=== PATIENT | female | born 1990 | race Caucasian/White ===

== ENCOUNTER 2020-02-26 17:36 | Emergency (ER) | payer OTHER ==
--- NOTE | 2020-02-26 18:58 | ER Document Report ---
ED Respiratory Problem <KATALINA NOEL Kajal - Last Filed: 02/26/20 20:44> <AMINATA SHARMA - Last Filed: 02/27/20 03:56> - General Chief Complaint: Shortness Of Breath Stated Complaint: SHORTNESS OF BREATH,COUGH,CHILLS,BODY ACHES Time Seen by Provider: 02/26/20 18:58 Primary Care Provider: ELISA IBARRA MD [ACTIVE PROVISIONAL STAFF] - (as scheduled on 03/08/20) Notes: Patient is a G3, P2 29-year-old female presents to the emergency department with shortness of breath. Patient is 32 weeks and states that the fetus is growing faster than normal. She denies any past medical history. Patient's tested positive for COVID-19. Patient was tested 2 days ago and is waiting on her results. Patient reports a cough and rhinorrhea. States that she took Benadryl, which helped a little bit with her cough. (KATALINA NOEL) - Related Data Allergies/Adverse Reactions: amoxicillin Allergy (Verified 02/26/20 20:54) Sulfa (Sulfonamide Antibiotics) Allergy (Verified 02/26/20 20:54) Past Medical History - General Information source: Patient - Social History Smoking Status: Never Smoker Frequency of alcohol use: None Drug Abuse: None Family History: Reviewed & Not Pertinent <AMINATA SHARMA - Last Filed: 02/27/20 03:56> Review of Systems <KATALINA NOEL - Last Filed: 02/26/20 20:44> - Review of Systems Notes: REVIEW OF SYSTEMS: CONSTITUTIONAL : Denies recent illness. Denies recent unintentional weight loss. Denies fever, chills, or sweats. EENT: Denies eye, ear, throat, or mouth pain, discharge, or symptoms. See HPI. CARDIOVASCULAR: Denies chest pain. RESPIRATORY: See HPI. GASTROINTESTINAL: Denies nausea, vomiting, and diarrhea. Denies abdominal pain. Denies constipation. GENITOURINARY: Denies difficulty urinating, burning, blood in urine, urgency or frequency. FEMALE GENITOURINARY: See HPI. MUSCULOSKELETAL: Denies neck and back pain. Denies joint pain or swelling. SKIN: Denies rash, itchiness, or lesions HEMATOLOGIC : Denies easy bruising or bleeding. LYMPHATIC: Denies swollen, painful, enlarged glands. NEUROLOGICAL: Denies no numbness or tingling denies weakness. Denies headache. Denies altered mental status. Denies alteration in speech. PSYCHIATRIC: Denies stress, anxiety, alteration in sleep patterns, or depression. All other systems reviewed and negative. (KATALINA NOEL) Physical Exam <KATALINA NOEL - Last Filed: 02/26/20 20:44> - Vital signs Vitals: Temp Pulse Resp BP Pulse Ox 98.6 F 120 H 24 H 133/68 H 97 02/26/20 17:50 02/26/20 17:50 02/26/20 17:50 02/26/20 17:50 02/26/20 17:50 - Notes Notes: PHYSICAL EXAMINATION: GENERAL: Appears well, healthy, well-nourished, no acute distress. HEAD: Normocephalic, atraumatic. EYES: PERRL, conjunctiva normal, all extraocular movements intact, sclera nonicteric ENT: Moist mucous membranes. NECK: Supple, no noticeable swelling, redness, rash. Normal range of motion. LUNGS: Equal breath sounds bilaterally and clear to auscultation. No wheezes rales or rhonchi. CARDIOVASCULAR: S1-S2, tachycardic, regular rhythm. Radial pulses 2+, normal. ABDOMEN: Normoactive bowel sounds. Soft, nontender, no guarding, no rebound tenderness, and no masses palpated. Appears 32 weeks . EXTREMITIES: Normal strength and range of motion, no pitting or edema. No cyanosis. NEUROLOGICAL: Moves all extremities upon command. Strength 5/5 in all extremities. PSYCH: Normal mood, normal affect. SKIN: Warm, dry. No rash, lesions, ulcerations noted. Normal skin turgor. (KATALINA NOEL) Course - Laboratory Results Result Diagrams: 02/26/20 20:20 02/26/20 20:20 <KATALINA NOEL - Last Filed: 02/26/20 20:44> - Laboratory Results Result Diagrams: 02/26/20 20:20 02/26/20 20:20 Critical Laboratory Results Reviewed: Yes - positive for COVID 19 Attending or Supervising Physician who Reviewed Labs: TONO GARZA - consult electrode turner and finisher - Radiology Results Critical Radiology Results Reviewed: No Critical Results - EKG Interpretation by Me Rate: Tachycardia - Consults Dr. Ibarra Time consulted: 12:23 Consulted provider: will see as inpatient Dr. Rapp Time consulted: 12:24 Consulted provider: will see as inpatient <AMINATA SHARMA - Last Filed: 02/27/20 03:56> - Re-evaluation Re-evalutation: 02/26/20 20:42 Report given to Aminata Sharma NP. (KATALINA NOEL) 02/26/20 21:42 Patient with persistent shortness of breath, cough improved after receiving Robitussin. Still remains tachycardic. Staffed case with my attending Dr. Garza recommends Covid test, second liter of fluid, and reevaluate. 02/26/20 22:34 Patient remains tachycardic and short of breath. Covid test is pending. Charge nurse has spoken to labor and delivery and they will send a nurse down to monitor the baby for the abdominal cramping that the patient is having. 02/26/20 23:56 Patient has received 2 L of IV fluids remains tachycardic and short of breath. COVID-19 test is positive. Will call on-call OB for possible admission. 02/26/20 12:25 spoke with my charge nurse who will reach out to clerical warehouse worker to resolve issue of who will be primary for admission. 02/27/20 02:29 Dr. Ibarra in the emergency room seeing and evaluating patient. 02/27/20 03:07 Patient is resting comfortably vital signs have improved. Shortness of breath has improved. Patient was seen and evaluated by who is discharging p atient home with outpatient follow-up. (AMINATA SHARMA) - Vital Signs Vital signs: Temp Pulse Resp BP Pulse Ox 98.5 F 120 H 19 108/77 93 02/27/20 03:19 02/26/20 17:50 02/27/20 03:01 02/27/20 03:01 02/27/20 03:01 - Laboratory Results Laboratory Results Interpreted: 02/26/20 02/26/20 02/26/20 20:10 20:20 20:20 Hgb 11.4 L Hct 33.2 L Lymph % (Auto) 12.7 L Seg Neutrophils % 78.3 H Sodium 132.5 L BUN 4 L Calcium 8.3 L Alkaline Phosphatase 145 H Total Protein 6.0 L Albumin 3.2 L Urine Protein 30 H Urine Ketones 80 H Urine Urobilinogen 4.0 H Ur Leukocyte Esterase LARGE H SARS-CoV-2 (PCR) 02/26/20 21:50 Hgb Hct Lymph % (Auto) Seg Neutrophils % Sodium BUN Calcium Alkaline Phosphatase Total Protein Albumin Urine Protein Urine Ketones Urine Urobilinogen Ur Leukocyte Esterase SARS-CoV-2 (PCR) DETECTED H - EKG Interpretation by Me Additional EKG results interpreted by me: 02/26/20 20:42 Sinus tachycardia. Rate 122. MT 144; QRS 80; QT 316; QTc 451. No ST elevations or depressions noted. No evidence of right heart strain. Discussed this EKG with Dr. Garza, my attending. (KATALINA NOEL) - Consults Dr. Ibarra Reason for consultation: 02/27/20 02:26 Patient 32 and half weeks Covid positive, persistent shortness of breath and tachycardic discussed admission with Dr. Ibarra. Who is agreeable for consult but is not willing to admit medically. Recommends calling hospitalist for admission. (AMINATA SHARMA) Dr. Rapp Reason for consultation: 02/27/20 02:27 Discussed admission for COVID-19 positive, persistent shortness of breath and tachycardic after receiving 2 L of IV fluids. Is not willing to accept patient as primary mission. Will consult but requesting patient be admitted to OB primary and medicine will consult. (AMINATA SHARMA) Discharge <KATALINA NOEL - Last Filed: 02/26/20 20:44> <AMINATA SHARMA - Last Filed: 02/27/20 03:56> - Discharge Clinical Impression: Shortness of breath, COVID-19, Tachycardia Condition: Stable Disposition: HOME, SELF-CARE Instructions: Dyspnea, Nonspecific ([facility]), Sinus Tachycardia ([facility]) Additional Instructions: Continue vitamin and add vitamin D 1,500mg daily, Protonix 40mg dially and Tums PRN for GERD, Zofran PRN nausea, start Baby aspirin 81mg BID until she returns to office. If worsening symptoms she should return to the ED immediately. If she notes contractions Q 5 minutes or less for an hour or more, vaginal bleeding like a period or loss of fluid vaginally she should come to ED immediately. If not feeling baby move then she should get a drink or snack and if still not feeling baby move then come to OB triage. Prescriptions: Ondansetron [Zofran Odt 4 mg Tablet] 4 mg PO Q4HP PRN 15 Days #30 tab.rapdis PRN Reason: Pantoprazole Sodium [Protonix] 40 mg PO DAILY 30 Days #30 tablet.dr Referrals: ELISA IBARRA MD [ACTIVE PROVISIONAL STAFF] - (as scheduled on 03/08/20)
[2020-02-26] MEDS ORDERED: NORMAL SALINE 1000 ML 1,000 ML IV ONE (19:07)
[2020-02-26] MEDS ORDERED: GUAIFENESIN/D-METHORPHAN (200-20 MG) SYRUP 10 ML PO ONE (19:14)
[2020-02-26] MEDS ORDERED: DIPHENHYDRAMINE HCL 50 MG/ML VIAL IV ONE (19:16)
--- NOTE | 2020-02-26 19:43 | RADIOLOGY REPORT (SQ) ---
EXAM DESCRIPTION: CHEST SINGLE VIEW IMAGES COMPLETED DATE/TIME: 02/26/2020 6:22 pm REASON FOR STUDY: cough; COVID + COMPARISON: None. EXAM PARAMETERS: NUMBER OF VIEWS: One view. TECHNIQUE: Single frontal radiographic view of the chest acquired. RADIATION DOSE: NA LIMITATIONS: None. FINDINGS: LUNGS AND PLEURA: No opacities, masses or pneumothorax. No pleural effusion. MEDIASTINUM AND HILAR STRUCTURES: No masses. Contour normal. HEART AND VASCULAR STRUCTURES: Heart normal in size. Normal vasculature. BONES: No acute findings. HARDWARE: None in the chest. OTHER: No other significant finding. IMPRESSION: NO ACUTE RADIOGRAPHIC FINDING IN THE CHEST. TECHNICAL DOCUMENTATION: JOB ID: [id number] 2010 [employer]- All Rights Reserved Reading location - IP/workstation name: [email or web address]
[2020-02-26 20:33] LABS: APPEARANCE,URINE CLOUDY; BILIRUBIN,URINE NEGATIVE (NEGATIVE); COLOR,URINE AMBER; GLUCOSE, URINE NEGATIVE (NEGATIVE); KETONES,URINE 80 mg/dL (NEGATIVE); LEUKOCYTE ESTERASE,URINE LARGE (NEGATIVE); NITRITE,URINE NEGATIVE (NEGATIVE); PROTEIN,URINE 30 mg/dL (NEGATIVE); URINE SPECIFIC GRAVITY 1.021
[2020-02-26 20:42] LABS: ABSOLUTE LYMPHOCYTES (AUTO) 0.9 10^3/uL (0.5-4.7); ABSOLUTE MONOCYTES (AUTO) 0.6 10^3/uL (0.1-1.4); ABSOLUTE NEUT (AUTO) 5.7 10^3/uL (1.7-8.2); BASOPHILS % (AUTO) 0.2 % (0-2); EOSINOPHILS % (AUTO) 0.1 % (0-6); HEMATOCRIT 33.2 % (36.0-47.0); HEMOGLOBIN 11.4 g/dL (12.0-15.5); LYMPHOCYTES % (AUTO) 12.7 % (13-45); MEAN CORPUSCULAR HEMOGLOBIN 27.9 pg (27.0-33.4); MEAN CORPUSCULAR HGB CONC 34.4 g/dL (32.0-36.0); MEAN CORPUSCULAR VOLUME 81 fl (80-97); MONOCYTES % (AUTO) 8.7 % (3-13); PLATELET COUNT 220 10^3/uL (150-450); RED BLOOD COUNT 4.09 10^6/uL (3.72-5.28); RED CELL DISTRIBUTION WIDTH 13.7 % (11.5-14.0); SEGMENTED NEUTROPHILS % (AUTO) 78.3 % (42-78); TOTAL CELLS COUNTED % (AUTO) 100 %; WHITE BLOOD COUNT 7.2 10^3/uL (4.0-10.5)
[2020-02-26 21:01] LABS: ALBUMIN 3.2 g/dL (3.5-5.0); ALKALINE PHOSPHATASE 145 U/L (38-126); ANION GAP 5 (5-19); ASPARTATE AMINO TRANSFERASE 26 U/L (14-36); BILIRUBIN,DIRECT 0.2 mg/dL (0.0-0.4); BILIRUBIN,TOTAL 0.5 mg/dL (0.2-1.3); BLOOD UREA NITROGEN 4 mg/dL (7-20); CALCIUM 8.3 mg/dL (8.4-10.2); CARBON DIOXIDE 24 mmol/L (22-30); CHLORIDE 104 mmol/L (98-107); GLUCOSE 87 mg/dL (75-110)
[2020-02-26 21:02] LABS: POTASSIUM 3.6 mmol/L (3.6-5.0)
[2020-02-26] MEDS ORDERED: RINGERS SOLUTION,LACTATED 1,000 ML IV ONE (21:42)
--- NOTE | 2020-02-26 22:40 | EKG REPORT ---
SEVERITY:- OTHERWISE NORMAL ECG - SINUS TACHYCARDIA : Confirmed by: Elliot Lord 26-Feb-2020 22:40:28
--- NOTE | 2020-02-27 02:39 | PDOC CONSULTATION ---
Consultation Consult Date: 02/27/20 Attending physician:: MARGOTH CABRERA Provider Consulted: ELISA IBARRA Consult reason:: History of Present Illness Admission Date/PCP: JARED DONOVAN MD History of Present Illness: PROMISE PICHARDO is a 29 year old female at 32 Weeks EGA who came to ER to be evaluated for cough, fatigue and respiratory symptoms such as congestion and SOB. She reports no fever today but has noted off and on low grade fevers since she lost her sense of smell on Thursday. SHe reports Non- productive cough and scratchy feeling in her throat. States she has taken medication since arriving here and her symptoms are better at the moment. She has tried tylenol and benadryl at home . Denies regular contractions, vaginal bleeding, loss of fluid. Good movement. Some nausea but not vomiting. Not taking antiemetics NST done by LDR staff and reactive Category 1 strip noted. Social History Smoking Status: Never Smoker Electronic Cigarette use?: No Family History Parental Family History Reviewed: Yes Children Family History Reviewed: Yes Sibling(s) Family History Reviewed.: Yes Medication/Allergy Allergies/Adverse Reactions: amoxicillin Allergy (Verified 02/26/20 20:54) Sulfa (Sulfonamide Antibiotics) Allergy (Verified 02/26/20 20:54) Review of Systems Constitutional: PRESENT: fever(s), other - aches. ABSENT: chills, headache(s), weight gain, weight loss Cardiovascular: ABSENT: chest pain, dyspnea on exertion, edema, orthropnea Respiratory: PRESENT: cough Gastrointestinal: PRESENT: nausea. ABSENT: abdominal pain, constipation, diarrhea, hematemesis, hematochezia, vomiting Musculoskeletal: ABSENT: joint swelling Integumentary: ABSENT: rash, wounds Neurological: ABSENT: abnormal gait, abnormal speech, confusion, dizziness, focal weakness, syncope Psychiatric: ABSENT: anxiety, depression, homidical ideation, suicidal ideation Endocrine: ABSENT: cold intolerance, heat intolerance, polydipsia, polyuria Physical Exam - Physical Exam Vital Signs: Temp Pulse Resp BP Pulse Ox 98.6 F 120 H 18 115/63 97 02/26/20 17:50 02/26/20 17:50 02/27/20 00:01 02/27/20 00:01 02/27/20 00:01 Intake & Output 01/11/0602/26/20 02/27/20 06:59 06:59 06:59 Intake Total 1999 Balance 1999 Weight 87.9 kg General appearance: PRESENT: no acute distress, cooperative Respiratory exam: PRESENT: clear to auscultation chad Cardiovascular exam: PRESENT: +S1, +S2, tachycardia - Heart rate 118-121 while I was in room talking with her. GI/Abdominal exam: PRESENT: soft - Non-tender. Fundus appropriate height Extremities exam: PRESENT: full ROM. ABSENT: calf tenderness, clubbing, pedal edema Musculoskeletal exam: PRESENT: ambulatory Neurological exam: PRESENT: alert, altered, awake, oriented to person, oriented to place, oriented to time, oriented to situation Psychiatric exam: PRESENT: appropriate affect, normal mood. ABSENT: homicidal ideation, suicidal ideation Skin exam: PRESENT: dry, intact, warm. ABSENT: cyanosis, rash Result Laboratory Results: 02/26/20 20:20 02/26/20 20:20 02/26/20 02/26/20 02/26/20 20:10 20:20 20:20 WBC 7.2 RBC 4.09 Hgb 11.4 L Hct 33.2 L MCV 81 MCH 27.9 MCHC 34.4 RDW 13.7 Plt Count 220 Seg Neutrophils % 78.3 H Sodium 132.5 L Potassium 3.6 Chloride 104 Carbon Dioxide 24 Anion Gap 5 BUN 4 L Creatinine 0.53 Est GFR ( Amer) > 60 Glucose 87 Calcium 8.3 L Total Bilirubin 0.5 AST 26 Alkaline Phosphatase 145 H Total Protein 6.0 L Albumin 3.2 L Urine Color LYNNE Urine Appearance CLOUDY Urine pH 7.0 Ur Specific Gary 1.021 Urine Protein 30 H Urine Glucose (UA) NEGATIVE Urine Ketones 80 H Urine Blood NEGATIVE Urine Nitrite NEGATIVE Ur Leukocyte Esterase LARGE H Urine WBC (Auto) 8 Urine RBC (Auto) 10 Impressions: Chest X-Ray 02/26/20 19:10 IMPRESSION: NO ACUTE RADIOGRAPHIC FINDING IN THE CHEST. Assessment & Plan - Diagnosis (1) Cough Is this a current diagnosis for this admission?: Yes (2) 32 weeks gestation of Is this a current diagnosis for this admission?: Yes (3) Nausea Is this a current diagnosis for this admission?: Yes - Time Critical Time spent with patient: Less than 15 minutes Anticipated Discharge Disposition: Home, Self Care Anticipated Discharge Timeframe: within 24 hours - Plan Summary Plan Summary: 29 yo at 32 wks EGA with cough, covid 19 + , nausea, GERD and upper respiratory congestion -VSS except mild tachycardia, afebrile. O2 sat 99% on room air -Chest x-ray negative -NST cat 1 in ED by LDR nurses -Reports improved symptoms since arrival -No shortness of breath/respiratory distress presently. -Discussed treatment plan for COvid in : at this time mild symptoms. Recommend Aspirn 81 mg BID, hydration, antiemetics such as zofran prn, tylenol 1,000mg q 6 hours for fever PRN, Management of her GERD with Protonix daily with TUMS PRN, loratidine 10mg daily for congestion and may take robitussin prn. Patient requested if able to manage at home. I think this is reasonable unless she becomes worse. She may return PRN. Precautions reviewed -Keep OB f/u on 03/08/20 as scheduled or sooner PRN
[2020-02-27 03:13] VITALS: BP 108/77
== END 2020-02-27 03:20 | disposition home or self-care (01) ==
LOC: ER 17:36
DX: O98.513 Other viral diseases complicating pregnancy, third trimester (principal); U07.1 COVID-19; O26.93 Pregnancy related conditions, unspecified, third trimester; R06.02 Shortness of breath; R00.0 Tachycardia, unspecified; R05 Cough; M79.10 Myalgia, unspecified site; Z3A.32 32 weeks gestation of pregnancy
CPT/HCPCS: 93005; 99285; 96361; 96374; 36415; 85025; 0202U ×23; 80053; 81001; 71045; 93010; J1200; J3490; J7030; J7120; C9803